=== PATIENT | female | born 2000 | race Caucasian/White ===

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

== ENCOUNTER 2023-09-02 23:01 | Observation (INO) | payer OTHER ==
[~2023-09-02] VITALS: Ht 162.6 cm; Wt 114.0 kg
[~2023-09-02 23:01] MED LIST: ONDANSETRON ODT8 MG PO
--- OUTSIDE RECORDS SUMMARY | 2023-09-02 23:11 | XMS ---
PreManage Notification: SUREKHA RENNER Security Asset Management Lead Events No recent Security Events currently on file CRITERIA MET - [facility] - 2 Visits in 30 Days CARE PROVIDERS -, Max Mackay- Dentist: Director Selection And Administration Person [facility] PHONE: [phone] WHITNEY HORTON Nurse Practitioner: Family Current PHONE: Unknown Errol has no Care Guidelines for this patient. E.Maggi VISIT COUNT (12 MO.) [address] [place] [address] Cydney Renteria (Airam Alegria) TOTAL 2 NOTE: Visits indicate total known visits. ED/UCC VISIT TRACKING (12 MO.) 09/02/2023 23:03 [facility] [place] [facility] TYPE: Emergency COMPLAINT: - GALLSTONES [facility]2023 01[facility] TYPE: Emergency DIAGNOSES: - Calculus of gallbladder without cholecystitis without obstruction - Abdominal Pain INPATIENT VISIT TRACKING ( MO.) No inpatient visits to display in this time frame [email or web address]
[2023-09-02 23:22] LABS: BASOPHILS 0.6 % (0-2); EOSINOPHILS 2.5 % (0-6); HEMATOCRIT 40.8 % (35.0-50.0); HEMOGLOBIN 13.3 g/dL (12.0-18.0); LYMPHOCYTES 22.4 % (24-44); MCH 28.2 (27-36); MCHC 32.6 g/dl (30-36); MCV 86.4 fl (81-99); MONOCYTES 7.1 % (0-12); NEUTROPHILS 67.4 % (39-80); PLATELET COUNT 337 K/uL (140-440); RBC 4.72 M/ul (4.3-5.7); RDW 13.4 (10.5-15.0)
[2023-09-02] MEDS ORDERED: NAPROXEN500 MG PO (23:24)
[2023-09-02] MEDS ORDERED: SERTRALINE HCL25 MG PO (23:25)
[2023-09-02] MEDS ORDERED: NORETHINDRONE0.35 MG PO (23:25)
[2023-09-02] MEDS ORDERED: SPIRONOLACTONE25 MG PO (23:25)
[2023-09-02] MEDS ORDERED: VENTOLIN HFA18 GM INH (23:26)
[2023-09-02 23:41] LABS: ALBUMIN/GLOBULIN RATIO 1.25 (1.1-2.4); ANION GAP 10.5 (7-21); BILIRUBIN, TOTAL 0.3 ng/dL (0.2-1.0); BUN/CREATININE RATIO 12.85 (6.0-28.6); CALCIUM 8.7 mg/dL (8.5-10.1); CREATININE, SERUM 0.7 mg/dL (0.55-1.02); POTASSIUM 3.5 mmol/L (3.5-5.1); PROTEIN, TOTAL 7.2 g/dL (6.4-8.2)
[2023-09-03 01:49] VITALS: BP 133/74
[2023-09-03 05:08] VITALS: BP 139/77
[2023-09-03 09:56] VITALS: BP 141/66
[2023-09-03 13:39] VITALS: BP 124/96
[2023-09-03 16:42] VITALS: BP 130/72
[2023-09-03 17:43] VITALS: BP 139/64
[2023-09-03] MEDS ORDERED: ACETAMINOPHEN500 MG PO (18:14)
[2023-09-03] MEDS ORDERED: HYDROCODON-ACE1 EA10 PO (18:14)
[2023-09-03] MEDS ORDERED: IBUPROFEN600 MG PO (18:14)
--- NOTE | 2023-09-04 19:08 | OR ---
[facility] [address] [place], [place] [address] Signed DATE OF OPERATION: 09/03/2023 SURGEON: Aaron Lowe MD PREOPERATIVE DIAGNOSES: 1. Acute calculous cholecystitis. 2. Morbid obesity. POSTOPERATIVE DIAGNOSES: 1. Acute calculous cholecystitis. 2. Morbid obesity. PROCEDURES: 1. Laparoscopic cholecystectomy with intraoperative cholangiogram. 2. Surgeon-directed fluoroscopy. ANESTHESIA: General endotracheal, Aaron Gonzalez CRNA and local 10 mL of 0.25% Marcaine with epinephrine. INDICATION: This 23-year-old white woman lives in [place], [place] and is a patient of Dr. Rafa Serrano in [place]. Two nights ago, she began having severe right subcostal and epigastric pain. She presented to the emergency room at [facility] in [place] where she underwent a CT scan which showed findings consistent with acute cholecystitis with gallstones. She was advised to return home and contact her primary care provider for referral to a surgeon. She was also advised to present to "a hospital" if her symptoms should worsen. Predictably, her symptoms did worsen and she presented to [facility] where she was evaluated by Dr. Bauman and found to have acute calculous cholecystitis. She has been fluid resuscitated, given intravenous antibiotics, parenteral pain medication and so forth and now is to undergo cholecystectomy preferred by a laparoscopic approach. The risk of bleeding, infection, bile duct injury, need for open procedure and of course failure to cure her symptoms was reviewed in detail. She understands and wished to proceed. FINDINGS: Indeed the gallbladder was markedly distended, quite inflamed, erythematous and edematous. Cholecystectomy was performed without complication. She had multiple dark round gallstones with one of them wedged tightly into the infundibulum. Cholangiogram was normal. Liver had fatty infiltration, but otherwise was normal. There were no Electronically Signed By: AARON LOWE MD 09/04/23 1908 PATIENT NAME: SUREKHA RENNER OPERATIVE REPORT DATE OF : [birth year] REPORT #: [id number] PHYSICIAN: AARON LOWE MD PCP: RAFA SERRANO MD REPORT IS CONFIDENTIAL AND NOT TO BE RELEASED WITHOUT AUTHORIZATION [facility] [address] [place] [id number] Signed other findings of concern. DESCRIPTION OF PROCEDURE: The patient was brought to the operating room, given a general endotracheal anesthetic. Preoperative antibiotic Ancef was administered in the operating room. Sequential compression device stockings were used and heparin subcutaneously administered. The abdomen was prepared with a chlorhexidine solution and draped sterilely. An infraumbilical incision was made and using an open Khadra cannula technique pneumoperitoneum was achieved to a level of 14 mmHg of carbon dioxide gas. Intra-abdominal inspection showed no sign of ascites or carcinomatosis. The liver was evaluated and found to be with fatty infiltration. The gallbladder was quite markedly edematous, inflamed and erythematous in appearance. Three additional trocars were placed in their usual configuration in the subxiphoid, right midclavicular, and right anterior axillary line. The gallbladder was elevated cephalad and found to be very elongated. The midportion of the gallbladder was elevated cephalad to provide access to the infundibulum. The infundibulum was grasped and retracted laterally and using blunt and electrocautery dissection the triangle of Calot was dissected free ultimately identifying the cystic arterial branch as well as the cystic duct. Clips were applied to the cystic artery, which was subsequently divided isolating the cystic duct itself. Photographs were taken. A clip was applied across the gallbladder cystic duct junction and transverse choledochotomy made in the cystic duct. Using an Parra type cholangiocatheter, intraoperative cholangiography was undertaken showing free flow of contrast in biliary tree with prompt emptying into the duodenum. The catheter was removed and the cystic duct was triply clipped and divided. The gallbladder was then dissected free in a retrograde fashion using electrocautery. Gallbladder was placed in an endobag and extracted through the infraumbilical port site without problem, opening on the back table and found to have multiple yellow and green dark 1 cm stones. The mucosa was normal. There was found to be a stone wedged into the infundibulum as well. Irrigation was undertaken in the subhepatic space. There was no sign of bile leak, bleeding or other problems. Trocars were removed under direct visualization showing no sign of bleeding. The infraumbilical fascial incision was reapproximated with interrupted 0 Vicryl suture and subsequently a running 0 PDS suture given her obesity. 10 mL of 0.25% Marcaine with epinephrine was injected locally. Irrigation was undertaken. The skin closed with interrupted 3-0 Vicryl and Steri-Strips were applied. The patient was ultimately extubated and transferred to the recovery room in good condition having suffered no complications. Sponge, needle, and instrument counts were reported as correct x3. Electronically Signed By: AARON LOWE MD 09/04/23 1908 PATIENT NAME: SUREKHA RENNER HELGA OPERATIVE REPORT DATE OF : 99 REPORT #: [id number] PHYSICIAN: AARON LOWE MD PCP: RAFA SERRANO MD REPORT IS CONFIDENTIAL AND NOT TO BE RELEASED WITHOUT AUTHORIZATION [address] [place] [address] Signed MD BOLIVAR Bruner/DANN /[id number] cc: Dr. Bauman [facility] Emergency Room D Copies: ~ Electronically Signed By: AARON LOWE MD 09/04/23 1908 PATIENT NAME: SUREKHA RENNER OPERATIVE REPORT DATE OF : [birth year] REPORT #: [id number] PHYSICIAN: AARON LOWE MD PCP: RAFA SERRANO MD REPORT IS CONFIDENTIAL AND NOT TO BE RELEASED WITHOUT AUTHORIZATION
--- NOTE | 2023-09-04 19:08 | HP ---
[facility] [address] [place], [place] [address] Signed ADMISSION DATE: 09/03/2023 REASON FOR ADMISSION: Acute calculous cholecystitis and obesity. HISTORY OF PRESENT ILLNESS: This 23-year-old white woman lives in [place]. Two nights ago, she presented to the emergency room at [facility] in [place] where she was affirmed to have acute cholecystitis with gallstones based on the CT scan. She was said that she had a "severe case" but instead of admitting and dealing with the problem, she was told to return to her PCP to arrange for a surgical consult elsewhere. Additionally, she was told that if she were to have persisting severe symptoms to present to "a hospital somewhere." Predictably, she presented to the emergency room at [facility] where she was evaluated by Dr. Bauman. Her findings were highly consistent with acute cholecystitis. She was noted to have a normal white count of 8.9, hematocrit of 40.8, platelets of 337,000. Electrolytes were found to be normal. Her bilirubin was 0.3, AST 12, lipase 40. Beta-HCG was negative. Tox screen was canceled. To my knowledge, she has not had a COVID test. She has no symptoms of that, however. She has had no nausea or vomiting. Only a persistent right subcostal pain. PAST MEDICAL HISTORY: Notable for morbid obesity with a BMI of 43.1. She has had childbirth x1. Her child is three years of age. SOCIAL HISTORY: She is unemployed. She is a member of the [employer]. She lives in [place]. Primary physician is Rafa Serrano MD in [place]. She is not working. Previously she worked as a "caregiver." REVIEW OF SYSTEMS: She denies any shortness of breath or chest pain. She has had no dysphagia, dysuria or hematemesis. PHYSICAL EXAMINATION: GENERAL: A pleasant white woman who looks to be nontoxic systemically. VITAL SIGNS: Show a temperature of 97.6, pulse of 74, blood pressure 139/77, O2 saturation 100% on room air. NECK: Trachea is midline. HEENT: Mucous membranes are somewhat dry. Electronically Signed By: AARON LOWE MD 09/04/23 1908 PATIENT NAME: SUREKHA RENNER HISTORY AND PHYSICAL DATE OF : [birth year] REPORT #: [id number] PHYSICIAN: AARON LOWE MD PCP: RAFA SERRANO MD REPORT IS CONFIDENTIAL AND NOT TO BE RELEASED WITHOUT AUTHORIZATION [facility] [address] [place] [id number] Signed CHEST: Shows normal respiratory excursion without tachypnea. HEART: Regular without murmur. ABDOMEN: Quite markedly obese. There is tenderness in the right subcostal and epigastric area. EXTREMITIES: Show no clubbing, cyanosis, or edema. LABORATORY DATA: Lab studies last night showed a white count of 8.9, hematocrit 40.8, platelets 337,000. Chem profile normal as described. Tox screen was canceled. Serology test is pending. The patient is affirmed to have gallstones and gallbladder wall thickening on CT scan. Acute cholecystitis is diagnosed clinically and she certainly does have that. I have recommended cholecystectomy preferred by a laparoscopic approach. Discussed the pathophysiology of the problem with her including the recommendation and treatment to include cholecystectomy, preferably laparoscopically, but she may require an open procedure. Additionally, she may have common duct stones for which a laparoscopic or open common duct exploration will be undertaken. This is unlikely considering her liver enzymes are normal. She does have mild dehydration and on that basis, additional fluids will be administered. She has not yet had a COVID test and that will be obtained as well. We plan to do surgery this afternoon. MD BOLIVAR Bruner/CRISTAL /[id number] cc: [facility] emergency neo Dr. Bauman Electronically Signed By: AARON LOWE MD 09/04/23 1908 PATIENT NAME: SUREKHA RENNER HISTORY AND PHYSICAL DATE OF : [birth year] REPORT #: [id number] PHYSICIAN: AARON LOWE MD PCP: RAFA SERRANO MD REPORT IS CONFIDENTIAL AND NOT TO BE RELEASED WITHOUT AUTHORIZATION [facility] [address] [place], [place] [address] Signed Copies: ~ Electronically Signed By: AARON LOWE MD 09/04/23 1908 PATIENT NAME: SUREKHA RENNER HELGA HISTORY AND PHYSICAL DATE OF : [birth year] REPORT #: [id number] PHYSICIAN: AARON LOWE MD PCP: RAFA SERRANO MD REPORT IS CONFIDENTIAL AND NOT TO BE RELEASED WITHOUT AUTHORIZATION
--- NOTE | 2023-09-10 17:26 | PATH ---
[facility] [address] [place], [place] [address] Signed SPECIMEN(S): A GALLBLADDER WITH CALCULUS SPECIMEN SOURCE: A. GALLBLADDER WITH CALCULUS CLINICAL HISTORY: Acute calculus cholecystitis. FINAL PATHOLOGIC DIAGNOSIS: Gallbladder with calculus: - Acute and Chronic calculous cholecystitis. - Focally increased mucosal and muscularis propria eosinophils. - Negative for atypical epithelial features. JVR:clv MICROSCOPIC EXAMINATION: Histologic sections of all submitted blocks are examined by light microscopy. These findings, together with the gross examination, support the pathologic diagnosis. GROSS DESCRIPTION: The specimen, labeled and designated "london Renner," is received in formalin and consists of Specimen: Previously opened gallbladder. Dimensions: 12.0 x 4.5 cm. Serosa: Violaceous, smooth and focally congested. Cystic Duct: Obstructed with yellow-brown gallstone that measures 0.9 cm in greatest dimension. Calculi: Numerous brown gallstones within the container and within the gallbladder that range in size from 0.2 to 0.9 cm in greatest dimension. Mucosa: Green and velvety. Wall thickness: 0.4 cm. Lymph node: No pericystic lymph nodes are grossly identified. Additional: None. Pump Servicer Supervisor sections are submitted in (A1). JS (under the direct supervision of a pathologist) The Gross Description was prepared using a voice recognition system. The report was reviewed for accuracy; however, sound-alike word errors, addition and/or deletions may occur. If there is any question about this report, please contact Client Services. PATIENT NAME: SUREKHA RENNER PATHOLOGY DATE OF : [birth year] REPORT #: [id number] PHYSICIAN: MARION PETER PCP: RAFA BROTHERS MD REPORT IS CONFIDENTIAL AND NOT TO BE RELEASED WITHOUT AUTHORIZATION [address], [place] [address] Signed PERFORMING LABORATORY: Technical component was performed by [employer], [address] [place] [address] (CLIA# [id number]). [facility], [address] [place] [id number] (CLIA#: [id number]). Diagnostician: Mikel Machado MD Pathologist Electronically Signed 09/10/2023 Copies: ~ PATIENT NAME: SUREKHA RENNER PATHOLOGY DATE OF : [birth year] REPORT #: [id number] PHYSICIAN: MARION PETER PCP: RAFA BROTHERS MD REPORT IS CONFIDENTIAL AND NOT TO BE RELEASED WITHOUT AUTHORIZATION
== END 2023-09-03 18:40 | disposition home or self-care (01) ==
LOC: ED 23:01 → MS 23:04
PROVIDERS: Family Medicine; ADMIT Surgery; ATTEND Surgery
PROC: 0FT44ZZ Resection of Gallbladder, Percutaneous Endoscopic Approach (ICD-10-PCS; principal; 2023-09-02)
DX: K81.2 Acute cholecystitis with chronic cholecystitis (principal); E66.01 Morbid (severe) obesity due to excess calories
CPT/HCPCS: 00790; 36415; 74300; 80053; 80307; 83690; 84703; 85025; 87502; 88304; 96372; 96374; 96375; 96376; G0378; J0131; J0330; J0690; J0780; J1100; J1160; J1644; J1885; J2250; J2270; J2405; J2704; J2765; J3010; J3490; J7121; Q9967; U0002